=== PATIENT | female | born 1995 | race Caucasian/White ===

== ENCOUNTER 2016-07-16 02:01 | Emergency (ER) | payer SELFPAY ==
[2016-07-16] MEDS ORDERED: PROMETHAZINE HCL 25 MG/ML VIAL IM ONE (02:23)
[2016-07-16] MEDS ORDERED: HYDROMORPHONE HCL 1 MG/ML CPJ IM ONE (02:23)
[2016-07-16 02:28] LABS: URINE APPEARANCE CLEAR; URINE BILIRUBIN NEGATIVE (NEGATIVE); URINE BLOOD NEGATIVE (NEGATIVE); URINE COLOR YELLOW; URINE GLUCOSE (UA) NEGATIVE (NEGATIVE); URINE KETONE NEGATIVE (NEGATIVE); URINE LEUKOCYTE ESTERASE NEGATIVE (NEGATIVE); URINE NITRITE NEGATIVE (NEGATIVE); URINE PROTEIN NEGATIVE (NEGATIVE); URINE UROBILINOGEN 0.2 E.U./dL (0.20 - 1.00)
[2016-07-16 02:31] LABS: HCG,QUALITATIVE URINE NEGATIVE (NEGATIVE)
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
[2016-07-16] MEDS ORDERED: KETOROLAC 30 MG/ML VIAL IM ONE (03:14)
[2016-07-16] MEDS ORDERED: DIAZEPAM 5 MG/1 ML TUBX IM ONE (03:14)
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
== END 2016-07-16 04:04 | disposition home or self-care (01) ==
LOC: ER 02:01
DX: M54.16 Radiculopathy, lumbar region (principal); R26.2 Difficulty in walking, not elsewhere classified
CPT/HCPCS: 81003; 81025; 72100; J1885; J1170; 96372; 99283; 99284; J2550; J3360

== ENCOUNTER 2016-10-18 17:05 | Emergency (ER) | payer BC ==
--- NOTE | 2016-10-18 17:26 | Emergency Department Record ---
History of Present Illness - General Chief complaint: complication Time Seen by Provider: 10/18/16 17:22 Source: Patient, Family Mode of Arrival: Ambulatory Limitations: No limitations - History of Present Illness Initial comments: 21 yo female presents vaginal spotting and low cramps. She states she had a positive test by urine at home. No history of prior . Her last cycle was due at the beginning of the month. She has been spotting for about 3 weeks. She saw her doctor yesterday. She had a negative UA and urine HCG after three positive home HCG's. Blood tests were sent but she does not know the results. MD Complaint: Abdominal pain, Vaginal bleeding -: Week(s) (3) Location: Abdomen Severity: Moderate Quality: Aching Consistency: Intermittent Improves with: None Worsens with: None Associated symptoms: Denies other symptoms Other (spotting) LMP (females 10-50): 3 weeks ago - Related Data : 0 Para: 0 Home Medications Medication Instructions Recorded Confirmed Last Taken Pnv95/Ferrous Fumarate/FA 1 each PO DAILY 10/18/16 10/18/16 10/18/16 [ Tablet] Previous Rx's Medication Instructions Recorded Metronidazole [Flagyl] 500 mg PO Q12HR #14 tablet 10/18/16 Naproxen [Naprosyn] 500 mg PO Q12H #20 tab. 10/18/16 Allergies Allergy/AdvReac Type Severity Reaction Status Date / Time No Known Drug Allergies Allergy Verified 10/18/16 17:29 Review of Systems Constitutional: Denies: Chills, Fever, Malaise, Weakness Eyes: Denies: Eye discharge ENT: Denies: Congestion, Throat pain Respiratory: Denies: Cough Cardiovascular: Denies: Chest pain, Palpitations, Syncope Endocrine: Denies: Fatigue Gastrointestinal: Reports: As per HPI, Abdominal pain. Denies: Diarrhea, Nausea , Vomiting Genitourinary: Reports: Abnormal menses. Denies: Dyspareunia, Dysuria, Frequency, Hematuria, Incontinence, Retention, Urgency Musculoskeletal: Denies: Arthralgia, Back pain, Joint swelling, Myalgia Skin: Denies: Bruising, Change in color, Rash Neurological: Denies: Confusion, Headache Psychiatric: Denies: Anxiety Hematological/Lymphatic: Denies: Blood Clots, Easy bleeding, Easy bruising, Swollen glands Past Medical History - SOCIAL HISTORY Smoking Status: Never smoker Drug Use: None - RESPIRATORY Hx Respiratory Disorders: No - CARDIOVASCULAR Hx Cardio Disorders: No - NEURO Hx Neuro Disorders: No - GI Hx GI Disorders: No - Hx Genitourinary Disorders: No - ENDOCRINE Hx Endocrine Disorders: No - MUSCULOSKELETAL Hx Musculoskeletal Disorders: Yes - PSYCH Hx Psych Problems: No - HEMATOLOGY/ONCOLOGY Hx Hematology/Oncology Disorders: No Physical Exam - General General Appearance: Alert, Oriented x3, Cooperative, No acute distress Limitations: No limitations - Head Head exam: Normal inspection - Eye Eye exam: Normal appearance, PERRL. negative: Conjunctival injection, Periorbital swelling - ENT ENT exam: Normal exam, Mucous membranes moist Ear exam: Normal external inspection Nasal Exam: Normal inspection Mouth exam: Normal external inspection Teeth exam: Normal inspection Throat exam: Normal inspection - Neck Neck exam: Normal inspection, Full ROM. negative: Tenderness - Respiratory Respiratory exam: Normal lung sounds bilaterally. negative: Respiratory distress - Cardiovascular Cardiovascular Exam: Regular rate, Normal rhythm, Normal heart sounds - GI/Abdominal GI/Abdominal exam: Soft, Tenderness. negative: Distended, Rigid - Rectal Rectal exam: Deferred - exam: Adnexal tenderness (L) (mild), Adnexal tenderness (R) (mild), cervical motion tenderness (mild), Normal external exam, Normal speculum exam, Vaginal bleeding (no visible blood but some pink on the swab), Vaginal discharge ( minimal thin DC). negative: Abnormal external exam, Adnexal mass (L), Adnexal mass (R), Cervical discharge, Vaginal erythema - Extremities Extremities exam: Normal inspection, Full ROM, Normal capillary refill. negative: Tenderness - Back Back exam: Reports: Normal inspection, Full ROM. Denies: CVA tenderness (R), CVA tenderness (L), Muscle spasm, Rash noted, Tenderness - Neurological Neurological exam: Alert, Normal gait, Oriented X3 - Psychiatric Psychiatric exam: Normal affect, Normal mood - Skin Skin exam: Dry, Intact, Normal color, Warm Course - Reevaluation(s) Reevaluation #1: The WET prep is negative CBC reviewed. No changes of the Hgb. WBC is 15. 10/18/16 17:58 Reevaluation #2: The remaining labs were reviewed The HCG was negative. The patient is in US. 10/18/16 18:23 Reevaluation #3: Given the pelvic pain and negative test I recommend treated for STD until all cultures are resulted. 10/18/16 18:55 Reevaluation #4: US was negative for acute findings, small amount of fluid in the endometrial canal. Normal adnexa and ovaries. All results were discussed with the patient and the recommendation for follow up 10/18/16 18:59 Medical Decision Making - Lab Data Result diagrams: 10/18/16 17:40 10/18/16 17:40 Disposition Disposition: Discharge Clinical Impression: Pelvic pain, Vaginal bleeding Disposition: Home, Self-Care Condition: (1) Good Instructions: Pelvic Pain in Women (ED) Additional Instructions: Call your doctor tomorrow to be seen for a recheck Return sooner or be seen if you have pain, fever or any new concerns Prescriptions: Metronidazole [Flagyl] 500 mg PO Q12HR #14 tablet Naproxen [Naprosyn] 500 mg PO Q12H #20 tab.dr Forms: Patient Portal Access Time of Disposition: 19:07
[2016-10-18 17:45] LABS: HEMATOCRIT 45.1 % (35.0-47.0); HEMOGLOBIN 15.2 gm/dl (11.6-16.0); MEAN CELL VOLUME 89.7 fl (81-97); MEAN CORPUSCULAR HEMOGLOBIN 30.2 pg (27-33); MEAN CORPUSCULAR HGB CONC 33.7 g/dl (32-36); MEAN PLATELET VOLUME 10.7 fl (7.4-10.4); PLATELET COUNT 287 K/uL (130-400); RED BLOOD COUNT 5.03 M/uL (3.80-5.40); RED CELL DISTRIBUTION WIDTH 12.9 % (11.5-14.5); WHITE BLOOD COUNT W/O DIFF 15.5 K/uL (4.2-12.2)
[2016-10-18 17:58] LABS: BLOOD UREA NITROGEN 13 mg/dL (7-17); CARBON DIOXIDE 26.2 mmol/L (22-30); CREATININE 0.8 mg/dL (0.52-1.04); EST GLOMERULAR FILTRATION RATE > 60 ml/min; GLUCOSE,RANDOM 92 mg/dL (70-110)
[2016-10-18 17:59] LABS: ALB/GLOB RATIO 1.5 (1.1-1.8); ALBUMIN 4.8 gm/dL (3.5-5.0); ALKALINE PHOSPHATASE 83 U/L (38-126); ALT/SGPT 35 U/L (9-52); ANION GAP 10.8 (7-16); AST/SGOT 27 U/L (14-36); BILIRUBIN,TOTAL 0.57 mg/dL (0.2-1.3)
[2016-10-18 18:17] LABS: TOTAL B-hCG < 2.39 mIU/mL
[2016-10-18] MEDS ORDERED: METRONIDAZOLE 250 MG TABLET PO ONE (18:23)
[2016-10-18] MEDS ORDERED: CEFTRIAXONE 250 MG VIAL IM ONE (18:23)
[2016-10-18] MEDS ORDERED: AZITHROMYCIN 500 MG TABLET PO ONE (18:23)
[2016-10-18 18:50] LABS: URINE APPEARANCE SL CLOUDY; URINE BILIRUBIN NEGATIVE (NEGATIVE); URINE BLOOD SMALL (NEGATIVE); URINE COLOR YELLOW; URINE GLUCOSE (UA) NEGATIVE (NEGATIVE); URINE KETONE NEGATIVE (NEGATIVE); URINE LEUKOCYTE ESTERASE NEGATIVE (NEGATIVE); URINE NITRITE NEGATIVE (NEGATIVE); URINE PROTEIN NEGATIVE (NEGATIVE); URINE UROBILINOGEN 0.2 E.U./dL (0.20 - 1.00)
[2016-10-18 18:59] LABS: URINE BACTERIA NONE SEEN; URINE EPITHELIAL CELLS 0 - 2 (FEW); URINE RBC 0 - 2 (NONE SEEN); URINE WBC NONE SEEN (0-2/hpf)
[2016-10-19 16:35] LABS: GC SPECIMEN TYPE Vaginal (())
== END 2016-10-18 19:18 | disposition home or self-care (01) ==
LOC: ER 17:05
DX: R10.2 Pelvic and perineal pain (principal); N93.9 Abnormal uterine and vaginal bleeding, unspecified
CPT/HCPCS: 76801; 76817; 80053; 81001; 84702; 85027; 86901; 87210; 96372; 99284

== ENCOUNTER 2017-02-17 17:30 | Emergency (ER) | payer SELFPAY ==
[2017-02-17 18:07] LABS: URINE APPEARANCE CLEAR; URINE BILIRUBIN NEGATIVE (NEGATIVE); URINE BLOOD NEGATIVE (NEGATIVE); URINE COLOR YELLOW; URINE GLUCOSE (UA) NEGATIVE (NEGATIVE); URINE KETONE NEGATIVE (NEGATIVE); URINE LEUKOCYTE ESTERASE NEGATIVE (NEGATIVE); URINE NITRITE NEGATIVE (NEGATIVE); URINE PROTEIN NEGATIVE (NEGATIVE); URINE UROBILINOGEN 0.2 E.U./dL (0.20 - 1.00)
[2017-02-17 18:08] LABS: HCG,QUALITATIVE URINE POSITIVE (NEGATIVE)
--- NOTE | 2017-02-17 18:12 | Emergency Department Record ---
History of Present Illness - General Chief complaint: complication Stated complaint: PREG AND CRAMPING Source: Patient Mode of Arrival: Ambulatory Limitations: No limitations Travel/Exposure to [place] Within 21 Days of Symptoms: No - History of Present Illness Initial comments: 21 yo female presents with low abdominal cramping that started yesterday. She had her last period January 11 but it was light. No bleeding. She has had 4 positive urine tests. Last August she had a miscarriage. No history of live births. Mild fatigue and breath tenderness recently. Her OB will be through [facility]. Onset/Timin -: Days(s) Location: Abdomen Severity: Mild Severity scale (1-10): 2 Quality: Cramping Consistency: Constant Improves with: None Worsens with: None Associated symptoms: Denies other symptoms Vaginal bleeding: None Miscarriage 01/11/17 Pre-adan care: None - Related Data Home Medications Medication Instructions Recorded Confirmed Last Taken Pnv No.95/Ferrous Fum/Folic AC 1 each PO DAILY 10/18/16 02/17/17 02/17/17 [ Tablet] Allergies Allergy/AdvReac Type Severity Reaction Status Date / Time No Known Drug Allergies Allergy Verified 02/17/17 17:50 Review of Systems Constitutional: Denies: Chills, Fever, Weakness Eyes: Denies: Eye discharge, Eye pain, Photophobia, Vision change ENT: Denies: Congestion, Throat pain Respiratory: Denies: Cough, Dyspnea Cardiovascular: Denies: Chest pain, Syncope Endocrine: Reports: Fatigue Gastrointestinal: Reports: As per HPI, Abdominal pain. Denies: Diarrhea, Nausea , Vomiting Genitourinary: Reports: As per HPI, Abnormal menses. Denies: Discharge, Dysuria , Frequency, Hematuria, Incontinence, Urgency Musculoskeletal: Denies: Arthralgia, Back pain, Myalgia Skin: Denies: Bruising, Change in color, Rash Neurological: Denies: Headache, Numbness Psychiatric: Denies: Anxiety Hematological/Lymphatic: Denies: Easy bleeding, Easy bruising Past Medical History - SOCIAL HISTORY Smoking Status: Never smoker Alcohol Use: None Drug Use: None - RESPIRATORY Hx Respiratory Disorders: No - CARDIOVASCULAR Hx Cardio Disorders: No - NEURO Hx Neuro Disorders: No - GI Hx GI Disorders: No - Hx Genitourinary Disorders: No - ENDOCRINE Hx Endocrine Disorders: No - MUSCULOSKELETAL Hx Musculoskeletal Disorders: Yes - PSYCH Hx Psych Problems: No - HEMATOLOGY/ONCOLOGY Hx Hematology/Oncology Disorders: No Family Medical History Any Significant Family History?: No Physical Exam - General General Appearance: Alert, Oriented x3, Cooperative, No acute distress Limitations: No limitations - Head Head exam: Normal inspection - Eye Eye exam: Normal appearance, Conjunctival injection - ENT ENT exam: Normal exam Ear exam: Normal external inspection Nasal Exam: Normal inspection Mouth exam: Normal external inspection - Neck Neck exam: Normal inspection, Full ROM. negative: Tenderness - Respiratory Respiratory exam: Normal lung sounds bilaterally. negative: Respiratory distress - Cardiovascular Cardiovascular Exam: Regular rate, Normal rhythm, Normal heart sounds - GI/Abdominal GI/Abdominal exam: Soft. negative: Guarding, Rebound, Rigid, Tenderness - Rectal Rectal exam: Deferred - exam: Adnexal tenderness (L), Normal bimanual exam, Normal external exam, Normal speculum exam. negative: Abnormal external exam, Adnexal mass (L), Adnexal mass (R), Adnexal tenderness (R), Cervical discharge, cervical motion tenderness, Enlarged uterus, Vaginal bleeding, Vaginal discharge, Vaginal erythema - Extremities Extremities exam: Normal inspection, Full ROM, Normal capillary refill. negative: Tenderness - Back Back exam: Reports: Normal inspection, Full ROM. Denies: Muscle spasm, Rash noted, Tenderness - Neurological Neurological exam: Alert, Normal gait, Oriented X3 - Psychiatric Psychiatric exam: Normal affect, Normal mood - Skin Skin exam: Dry, Intact, Normal color, Warm Course Vital Signs 02/17/17 17:51 Temperature 98.8 F Pulse Rate 86 Respiratory 18 Rate Blood Pressure 126/78 Pulse Ox 98 - Reevaluation(s) Reevaluation #1: No acute changes on the CBC or CMP UA negative with + UCG 02/17/17 19:38 Reevaluation #2: HCG 3062 Rh+ I recommend transfer to [facility] for US given the left adnexal tenderness I called the [facility] ED I JOSEPH Fairchild of the ED for transfer 02/17/17 20:00 Medical Decision Making - Lab Data Result diagrams: 02/17/17 18:58 02/17/17 18:58 Disposition Disposition: Transfer Clinical Impression: Pelvic pain Qualifiers: Weeks of gestation: less than 8 weeks Qualified Code(s): Z3A.01 - Less than 8 weeks gestation of Disposition: Acute Care Hospital Transfer Transfer To: [facility] Reason For Transfer: US for RO ectopic Accepting Physician: Fadia Time Discussed w/Accepting Physician: 20:05 Condition: (2) Stable Additional Instructions: Go directly to [facility] for an US to rule out ectopic Forms: Patient Portal Access Time of Disposition: 20:08 Quality - Quality Measures Quality Measures: N/A - Blood Pressure Screening Does Patient Have Any of the Following: No Blood Pressure Classification: Pre-Hypertensive BP Reading Systolic Measurement: 126 Diastolic Measurement: 78 Screening for High Blood Pressure: < Pre-Hypertensive BP, F/U Documented > [ [id number]] Pre-Hypertensive Follow-up Interventions: Referral to alternative/primary care provider.
[2017-02-17 19:06] LABS: BASO % 0.3 % (0-6); EOS % 1.2 % (0-6); GRAN % 68.8 % (47-80); HEMATOCRIT 42.8 % (35.0-47.0); HEMOGLOBIN 14.8 gm/dl (11.6-16.0); LYMPH % 22.3 % (16-45); MEAN CELL VOLUME 88.2 fl (81-97); MEAN CORPUSCULAR HEMOGLOBIN 30.5 pg (27-33); MEAN CORPUSCULAR HGB CONC 34.6 g/dl (32-36); MEAN PLATELET VOLUME 10.8 fl (7.4-10.4); MONO % 7.4 % (0-9); PLATELET COUNT 279 K/uL (130-400); RED BLOOD COUNT 4.85 M/uL (3.80-5.40); RED CELL DISTRIBUTION WIDTH 12.7 % (11.5-14.5); WHITE BLOOD COUNT W/O DIFF 9.5 K/uL (4.2-12.2)
[2017-02-17 19:35] LABS: ALB/GLOB RATIO 1.4 (1.1-1.8); ALBUMIN 4.3 gm/dL (3.5-5.0); ALKALINE PHOSPHATASE 49 U/L (38-126); ALT/SGPT 36 U/L (9-52); AST/SGOT 18 U/L (14-36); BLOOD UREA NITROGEN 9 mg/dL (7-17); CREATININE 0.6 mg/dL (0.52-1.04); EST GLOMERULAR FILTRATION RATE > 60 ml/min; GLUCOSE,RANDOM 86 mg/dL (70-110); TOTAL PROTEIN 7.3 gm/dL (6.3-8.2)
[2017-02-20 20:11] LABS: GC SPECIMEN TYPE vaginal
== END 2017-02-17 20:21 | disposition short-term general hospital (02) ==
LOC: ER 17:30
DX: O26.891 Other specified pregnancy related conditions, first trimester (principal); R10.2 Pelvic and perineal pain; Z3A.01 Less than 8 weeks gestation of pregnancy
CPT/HCPCS: 99285 ×2; 85025; 84702; 80053; 81003; 81025; 86901; Q0111; 87210

== ENCOUNTER 2017-05-15 12:18 | Emergency (ER) | payer BC, MEDICAID ==
[2017-05-15 13:19] LABS: URINE APPEARANCE CLEAR; URINE BILIRUBIN NEGATIVE (NEGATIVE); URINE BLOOD NEGATIVE (NEGATIVE); URINE COLOR YELLOW; URINE GLUCOSE (UA) NEGATIVE (NEGATIVE); URINE KETONE TRACE (NEGATIVE); URINE LEUKOCYTE ESTERASE NEGATIVE (NEGATIVE); URINE NITRITE NEGATIVE (NEGATIVE); URINE PROTEIN NEGATIVE (NEGATIVE); URINE UROBILINOGEN 0.2 E.U./dL (0.20 - 1.00)
--- NOTE | 2017-05-15 15:53 | Emergency Department Record ---
History of Present Illness - General Chief Complaint: Abdominal Pain Stated Complaint: CRAMPS/18 WKS Time Seen by Provider: 05/15/17 13:05 Source: Patient Mode of Arrival: Ambulatory Limitations: No limitations - History of Present Illness Initial Comments: pt is 18 wks and has been having suprapubic pain for 3 days that is intermittant. she states it is becomingl progressively worse. it is sharp. pt is Complaint: Abdominal pain Onset/Timin -: Days(s) Location: Suprapubic Radiation: None Migration to: No migration Severity: Mild Quality: Sharp Consistency: Intermittent Improves With: Nothing Worsens With: Nothing Associated Symptoms: Nausea - Related Data Patient : Yes (18 weeks tomorrow) Allergies Allergy/AdvReac Type Severity Reaction Status Date / Time No Known Drug Allergies Allergy Verified 05/15/17 12:41 Travel Screening - Travel/Exposure Within Last 30 Days Have you traveled within the last 30 days?: No Review of Systems Reviewed: No additional complaints except as noted below Constitutional: Reports: As per HPI. Denies: Chills, Fever, Malaise, Night sweats, Weakness, Weight change Eyes: Reports: As per HPI. Denies: Eye discharge, Eye pain, Photophobia, Vision change ENT: Reports: As per HPI. Denies: Congestion, Dental pain, Ear pain, Epistaxis , Hearing loss, Throat pain Respiratory: Reports: As per HPI. Denies: Cough, Dyspnea, Hemoptysis, Stridor, Wheezes Cardiovascular: Reports: As per HPI. Denies: Arrhythmia, Chest pain, Dyspnea on exertion, Edema, Murmurs, Orthopnea, Palpitations, Paroxysmal nocturnal dyspnea, Rheumatic Fever, Syncope Endocrine: Reports: As per HPI. Denies: Fatigue, Heat or cold intolerance, Polydipsia, Polyuria Gastrointestinal: Reports: As per HPI. Denies: Abdominal pain, Constipation, Diarrhea, Hematemesis, Hematochezia, Melena, Nausea, Vomiting Genitourinary: Reports: As per HPI. Denies: Abnormal menses, Discharge, Dyspareunia, Dysuria, Frequency, Hematuria, Incontinence, Retention, Urgency Musculoskeletal: Reports: As per HPI. Denies: Arthralgia, Back pain, Gout, Joint swelling, Myalgia, Neck pain Skin: Reports: As per HPI. Denies: Bruising, Change in color, Change in hair/ nails, Lesions, Pruritus, Rash Neurological: Reports: As per HPI. Denies: Abnormal gait, Confusion, Headache, Numbness, Paresthesias, Seizure, Tingling, Tremors, Vertigo, Weakness Psychiatric: Reports: As per HPI. Denies: Anxiety, Auditory hallucinations, Depression, Homicidal thoughts, Suicidal thoughts, Visual hallucinations Hematological/Lymphatic: Reports: As per HPI. Denies: Anemia, Blood Clots, Easy bleeding, Easy bruising, Swollen glands Past Medical History - SOCIAL HISTORY Smoking Status: Never smoker Alcohol Use: None Drug Use: None - RESPIRATORY Hx Respiratory Disorders: No - CARDIOVASCULAR Hx Cardio Disorders: No - NEURO Hx Neuro Disorders: No - GI Hx GI Disorders: No - Hx Genitourinary Disorders: No - ENDOCRINE Hx Endocrine Disorders: No - MUSCULOSKELETAL Hx Musculoskeletal Disorders: Yes - PSYCH Hx Psych Problems: No - HEMATOLOGY/ONCOLOGY Hx Hematology/Oncology Disorders: No Family Medical History Any Significant Family History?: No Physical Exam - General General Appearance: Alert, Oriented x3, Cooperative, Mild distress - Head Head exam: Normal inspection - Eye Eye exam: Normal appearance, PERRL, EOMI Pupils: Normal accommodation - ENT ENT exam: Normal exam, Mucous membranes moist, Normal external ear exam, Normal orophraynx Ear exam: Normal external inspection. negative: External canal tenderness Nasal Exam: Normal inspection. negative: Discharge, Sinus tenderness Mouth exam: Normal external inspection, Tongue normal Teeth exam: Normal inspection. negative: Dental caries Throat exam: Normal inspection. negative: Tonsillar erythema, Tonsillar exudate - Neck Neck exam: Normal inspection, Full ROM. negative: Tenderness - Respiratory Respiratory exam: Normal lung sounds bilaterally. negative: Respiratory distress - Cardiovascular Cardiovascular Exam: Normal rhythm, Normal heart sounds, Tachycardia - GI/Abdominal GI/Abdominal exam: Soft, Normal bowel sounds. negative: Tenderness - Rectal Rectal exam: Deferred - exam: Adnexal tenderness (R), cervical motion tenderness, Enlarged uterus - Extremities Extremities exam: Normal inspection, Full ROM, Normal capillary refill. negative: Tenderness - Back Back exam: Reports: Normal inspection, Full ROM. Denies: Muscle spasm, Rash noted, Tenderness - Neurological Neurological exam: Alert, Normal gait, Oriented X3, Reflexes normal - Psychiatric Psychiatric exam: Normal affect, Normal mood - Skin Skin exam: Dry, Intact, Normal color, Warm Course Vital Signs 05/15/17 05/15/17 05/15/17 12:38 14:00 15:33 Temperature 98.2 F 98.3 F Pulse Rate 109 H Pulse Rate [ 95 H 92 H Pulse Ox Probe] Respiratory 20 20 20 Rate Blood Pressure 134/86 Blood Pressure 115/71 120/66 [Left Arm] Pulse Ox 97 98 98 - Reevaluation(s) Reevaluation #1: 05/15/17 16:50 pts pain is now in the rlq Reevaluation #2: 05/15/17 16:53 us is normal. fh 156. placenta nml, cervis normal, baby breech Reevaluation #3: 05/15/17 17:07 d/w dr walsh and dr chaudhari Medical Decision Making - Lab Data Result diagrams: 05/15/17 16:00 05/15/17 16:00 Lab Results 05/15/17 Range/Units 13:10 Urine Color Yellow Urine Appearance Clear Urine pH 6.0 (5.0-8.0) Ur Specific [place] >= 1.030 (1.002-1.030) Urine Protein Negative (NEGATIVE) Urine Glucose (UA) Negative (NEGATIVE) Urine Ketones Trace H (NEGATIVE) Urine Blood Negative (NEGATIVE) Urine Nitrite Negative (NEGATIVE) Urine Bilirubin Negative (NEGATIVE) Urine Urobilinogen 0.2 (0.20 - 1.00) E.U./dL Ur Leukocyte Esterase Negative (NEGATIVE) Disposition Disposition: Transfer Clinical Impression: RLQ abdominal pain, Suprapubic abdominal pain, 18 weeks gestation of Disposition: Acute Care Hospital Transfer Transfer To: [facility] Reason For Transfer: needs ob and surgeon Accepting Physician: johnnie walsh and fara Time Discussed w/Accepting Physician: 17:08 Forms: Patient Portal Access Quality - Quality Measures Quality Measures: N/A - Blood Pressure Screening Does Patient Have Any of the Following: No Blood Pressure Classification: Pre-Hypertensive BP Reading Systolic Measurement: 134 Diastolic Measurement: 86 Screening for High Blood Pressure: < First Hypertensive BP, F/U Documented > [ [id number]] First Hypertensive Follow-up Interventions: Follow-up with rescreen GT 1 day and LT 4 weeks.
[2017-05-15 16:09] LABS: HEMATOCRIT 38.6 % (35.0-47.0); HEMOGLOBIN 13.1 gm/dl (11.6-16.0); MEAN CELL VOLUME 87.7 fl (81-97); MEAN CORPUSCULAR HEMOGLOBIN 29.8 pg (27-33); MEAN CORPUSCULAR HGB CONC 33.9 g/dl (32-36); MEAN PLATELET VOLUME 10.4 fl (7.4-10.4); PLATELET COUNT 253 K/uL (130-400); RED CELL DISTRIBUTION WIDTH 13.1 % (11.5-14.5); WHITE BLOOD COUNT W/O DIFF 12.4 K/uL (4.2-12.2)
[2017-05-15 16:21] LABS: PLATELET ESTIMATE NORMAL (NORMAL)
[2017-05-15 16:25] LABS: BLOOD UREA NITROGEN 6 mg/dL (6-20); CREATININE 0.4 mg/dL (0.5-0.9); EST GLOMERULAR FILTRATION RATE > 60 mL/min; GLUCOSE,RANDOM 117 mg/dL (74-109)
--- NOTE | 2017-05-16 08:35 | ULTRASOUND REPORT ---
EXAM: ULTRASOUND (SECOND-THIRD TRIMESTER) LIMITED WITH TRANSVAGINAL IMAGING HISTORY: STABBING PAIN IN LEFT GROIN. TECHNIQUE: Routine transabdominal ultrasound was performed. Transvaginal scanning was also performed for further evaluation of the cervix. Comparison: Ultrasound first trimester dated 10/18/16. FINDINGS: A single live intrauterine is redemonstrated with the fetus in the breech position. motion and cardiac activity are identified. The placenta is located posteriorly and there is no evidence of previa. Amniotic fluid index is 15.2 cm. heart rate is 150 b.p.m. The following measurements are obtained. BPD: 3.95 cm corresponding to a gestational age of 17 weeks 6 days HC: 14.8 cm corresponding to a gestational age of 17 weeks 5 days AC: 12.0 cm corresponding to a gestational age of 17 weeks 4 days FL: 2.59 cm corresponding to a gestational age of 17 weeks 4 days Estimated weight: 210.7 grams plus or minus 32 grams Cervical index: 77 (70-86) The cervical length measures 3.1 cm. survey was not performed. No adnexal mass nor free pelvic fluid is seen. The transvaginal images demonstrate the cervix to be closed. IMPRESSION: 1. LIMITED ULTRASOUND DEMONSTRATES A SINGLE LIVE INTRAUTERINE OF APPROXIMATE GESTATIONAL AGE PER CURRENT MEASUREMENT OF 17 WEEKS 5 DAYS PLUS OR MINUS 1 WEEK 2 DAYS. 2. NO EVIDENCE OF PLACENTA PREVIA NOR PLACENTA ABRUPTION. 3. HEART RATE 150 B.P.M. JOB NUMBER: [id number] MTDD
== END 2017-05-15 17:40 | disposition short-term general hospital (02) ==
LOC: ER 12:18
DX: O26.892 Other specified pregnancy related conditions, second trimester (principal); R10.31 Right lower quadrant pain; R11.0 Nausea; Z3A.18 18 weeks gestation of pregnancy
CPT/HCPCS: 76815; 80048; 81003; 85027; 99285